=== PATIENT | male | born 1985 ===

== ENCOUNTER → 2018-01-01 18:29 | Outpatient (REF) | payer OTHER, SELFPAY ==
[2018-01-01 19:13] LABS: Add Manual Diff / Slide Review NO; Basophils Percent Auto 0.3 % (0-2); Hematocrit 45.4 % (41-53); Hemoglobin 15.9 g/dL (13.5-17.5); Lymphocytes Percent Auto 41.9 % (25-40); Mean Corpuscular HGB Conc 35.1 % (30-36); Mean Corpuscular Hemoglobin 31.5 PG (26-34); Mean Corpuscular Volume 89.7 fL (80-100); Monocytes Percent Auto 10.4 % (3-14); Neutrophils Absolute Auto 3300 /uL (3000-5900); Neutrophils Percent Auto 45.4 % (50-75); Platelet Count 260 X10^3/uL (150-400); Red Blood Cell Count 5.06 X10^6/uL (4.5-5.9); Red Cell Distribution Width 13.2 % (11.6-14.8); White Blood Cell Count 7.3 X10^3/uL (4.5-11.0)
[2018-01-01 19:46] LABS: Alanine Aminotransferase 48 IU/L (21-72); Albumin 4.2 g/dL (3.5-5.0); Albumin Globulin Ratio 1.5 (1.0-2.8); Alkaline Phosphatase 57 U/L (38-126); Aspartate Aminotransferase 37 IU/L (17-59); Bilirubin Total 0.5 mg/dL (0.2-1.3); Blood Urea Nitrogen 19 mg/dL (9-20); Calcium 9.2 mg/dL (8.4-10.2); Carbon Dioxide 28 mmol/L (22-32); Chloride 103 mmol/L (98-107); Estimated Glomerular Filt Rate > 60.0 mL/min (>60); Globulin 2.8 g/dL (1.7-4.1); Glucose 101 mg/dL (70-100); HEMOLYSIS 17 (0-50); Sodium 143 mmol/L (137-145)
[2018-01-01 21:17] LABS: Thyroid Stimulating Hormone 1.76 uIU/mL (0.47-4.68)
== END ==
LOC: LAB 18:29
PROVIDERS: Visit Provider Family Medicine
DX: R00.2 Palpitations (principal)
CPT/HCPCS: 36415; 80053; 84443; 85025

== ENCOUNTER → 2018-10-04 21:10 | Outpatient (ROUT) | payer OTHER, SELFPAY ==
[2018-10-04 21:41] LABS: Add Manual Diff / Slide Review NO; Basophils Absolute Auto 0 /uL (0-100); Basophils Percent Auto 0.7 % (0-2); Eosinophils Absolute Auto 100 /uL (0-450); Eosinophils Percent Auto 1.7 % (2-4); Hematocrit 47.5 % (41-53); Hemoglobin 16.1 g/dL (13.5-17.5); Lymphocytes Absolute Auto 2500 /uL (1100-4500); Lymphocytes Percent Auto 39.5 % (25-40); Mean Corpuscular HGB Conc 33.9 % (30-36); Mean Corpuscular Hemoglobin 31.4 PG (26-34); Mean Corpuscular Volume 92.5 fL (80-100); Monocytes Absolute Auto 700 /uL (0-900); Monocytes Percent Auto 10.2 % (3-14); Neutrophils Absolute Auto 3100 /uL (1500-7000); Neutrophils Percent Auto 47.9 % (50-75); Platelet Count 257 X10^3/uL (150-400); Red Blood Cell Count 5.14 X10^6/uL (4.5-5.9); Red Cell Distribution Width 13.9 % (11.6-14.8); White Blood Cell Count 6.4 X10^3/uL (4.5-11.0)
[2018-10-04 21:58] LABS: Alanine Aminotransferase 50 IU/L (21-72); Albumin 4.2 g/dL (3.5-5.0); Albumin Globulin Ratio 1.5 (1.0-2.8); Alkaline Phosphatase 63 U/L (38-126); Aspartate Aminotransferase 40 IU/L (17-59); Bilirubin Total 0.4 mg/dL (0.2-1.3); Blood Urea Nitrogen 18 mg/dL (9-20); Calcium 9.1 mg/dL (8.4-10.2); Carbon Dioxide 26 mmol/L (22-32); Chloride 101 mmol/L (98-107); Estimated Glomerular Filt Rate > 60.0 mL/min (>60); Globulin 2.8 g/dL (1.7-4.1); Potassium 4.4 mmol/L (3.4-5.1); Sodium 141 mmol/L (137-145)
[2018-10-04 22:02] LABS: Erythrocyte Sedimentation Rate 1 MM/HR (0-15)
[2018-10-05 03:04] LABS: Cortisol Random 8.92 ug/dL; HEMOLYSIS < 15 (0-50)
[2018-10-05 03:34] LABS: Folate > 20.0 ng/mL (2.76-20.0); Vitamin B12 509 pg/mL (239-931)
== END ==
PROVIDERS: Visit Provider Family Medicine
DX: R53.83 Other fatigue (principal); R53.81 Other malaise; R53.1 Weakness
CPT/HCPCS: 36415; 80053; 82533; 82607; 82746; 83036; 84403; 84443; 85025; 85651